=== PATIENT | male | born 1975 | race Caucasian/White ===

== ENCOUNTER 2021-11-30 13:40 | Outpatient (CLI) | payer OTHER, SELFPAY | END 2021-11-30 13:41 | disposition home or self-care (01) | LOC: OP CLINIC 13:43 | PROVIDERS: PCP Family Medicine; Visit Provider Surgery | DX: Z12.11 Encounter for screening for malignant neoplasm of colon (principal) | CPT/HCPCS: 45378; J1200; J2250; J3010 ==

== ENCOUNTER 2022-05-12 18:04 | Emergency (ER) | payer OTHER, SELFPAY ==
[2022-05-12 18:24] VITALS: BP 168/105; PULSE 91; RESP 20; TEMP 36.6; O2SAT 98; BMI 24.4
--- NOTE | 2022-05-12 18:44 | CRLHL7_ITS ---
For Patients: As a result of the Cures Act, medical imaging exams and procedure reports are released immediately into your electronic medical record. You may view this report before your referring provider. If you have questions, please contact your health care provider. Indication: Injury Technique: Three views right hand Comparison: No comparison Findings: Mildly comminuted fracture distal 5th metacarpal with volar angulation and soft tissue swelling present. Dictated by Fiorella Dela Cruz MD @ 05/12/2022 7:37:35 PM (Electronically Signed)
[2022-05-12 18:45] VITALS: BP 142/98; PULSE 91; RESP 16; O2SAT 97
--- NOTE | 2022-05-12 18:58 | ED_ITS ---
HPI - Extremity Injury (Upper) General Date Seen: 05/12/22 Chief Complaint: Extremity Pain/Injury, Upper Stated Complaint: right hand injury Time Seen by Provider: 05/12/22 18:06 Source: patient Mode of arrival: ambulatory Limitations: no limitations Related Data Home Medications Medication Instructions Recorded Confirmed No Known Home Medications 05/12/22 05/12/22 Allergies Allergy/AdvReac Type Severity Reaction Status Date / Time No Known Allergies Allergy Unverified 11/14/21 11:47 [facility] Medical History (Updated 05/12/22 @ 19:15 by Jose Alfredo May MD) History of herpes zoster Surgical History (Updated 11/14/21 @ 11:47 by Kelvin Irizarry) History of knee surgery Social History (Updated 11/14/21 @ 13:49 by Kelvin Irizarry) Narrative: non-smoker Smoking Status: Never smoker Do you use any of these nicotine containing products: None How often do you have a drink containing alcohol: 2-3 times a week How many standard drinks containing alcohol do you have on a typical day: 3 or 4 How often do you have six or more drinks on one occasion: Never AUDIT-C Alcohol total score: 4 Non-prescribed substance use: denies use Exam Narrative: Exam Narrative: Swelling is noted of the both volar dorsum of his hand, 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 Full extension of his fingers is also noted, it is swollen however and some bruising, I think an x-ray would be important, cap refill is normal sensations normal also. No evidence of laceration or open component Const: Vital Signs, click to edit/add: Vital Signs - 24 hr 05/12/22 18:24 05/12/22 18:45 Temperature 97.8 F Pulse Rate [Pulse Oximeter] 91 91 Respiratory Rate 20 16 Blood Pressure [Le ft Upper Arm] 168/105 H 142/98 H Pulse Oximetry 98 97 Oxygen Delivery Me thod Room Air Room Air Documenting provider has reviewed patient's vital signs: yes Course Course Hospital Course: X-ray revealed the boxer's fracture of the 5th metacarpal, approximately less than 20? of angulation is seen of the head, this generally means of functional result, I will contact Orthopedics to get them to weigh in on this. Vital Signs Vital signs: Initial Vital Signs Temperature 97.8 F 05/12/22 18:24 Temperature Source Temporal Artery Scan 05/12/22 18:24 Pulse Rate 91 05/12/22 18:24 Respiratory Rate 20 05/12/22 18:24 Blood Pressure 168/105 H 05/12/22 18:24 Blood Pressure Mean 126 05/12/22 18:24 Blood Pressure Position Sitting 05/12/22 18:24 Pulse Oximetry 98 05/12/22 18:24 Oxygen Delivery Method 05/12/22 18:24 Vital Signs Temperature 97.8 F 05/12/22 18:24 Pulse Rate 91 05/12/22 18:24 Respiratory Rate 20 05/12/22 18:24 Blood Pressure 168/105 H 05/12/22 18:24 Pulse Oximetry 98 05/12/22 18:24 Oxygen Delivery Method 05/12/22 18:24 Temperature 97.8 F 05/12/22 18:24 Pulse Rate 91 05/12/22 18:45 Respiratory Rate 16 05/12/22 18:45 Blood Pressure 142/98 H 05/12/22 18:45 Pulse Oximetry 97 05/12/22 18:45 Oxygen Delivery Method 05/12/22 18:45 MDM - Extremity Injury (Upper) MDM Narrative Medical decision making narrative: I spoke in showed the x-rays to our orthopedist, he agreed that the angulation was minimal, he would best be served just by an ulnar gutter splint in follow-up. I explained this to the patient, talked about the treatment, and follow-up, I built the ulnar gutter splint, and put him in this with the metacarpals flex to 90?, and the PIP and D IP joint minimally flex. Post splint placement he had normal cap refill, normal sensation. Medical Records Attestation: I reviewed the patient's medical records. Imaging Data Hand x-ray: Attestation: I have reviewed the pertinent imaging results. My impression: Closed metacarpal head fracture, with less than 20? of volar angulation of the distal piece. Radiologist's impression: Patient: [facility] Facility:?[facility] Patient ID:?[id number] Site Patient ID:?[id number]. Site :?[id number] Study:?XRay Extremity Right HAND-05/12/2022 7:00:04 PM Ordering Physician:Sofy Veliz Final Report: Indication: Injury Technique: Three views right hand Comparison: No comparison Findings: Mildly comminuted fracture distal 5th metacarpal with volar angulation and soft tissue swelling present. Dictated by Fiorella Dela Cruz MD @ 05/12/2022 7:37:35 PM (Electronic Signature) Discharge Plan Discharge Clinical Impression: Closed boxer's fracture Patient Disposition: Home, Self-Care Condition: Stable Additional Instructions: Follow-up with orthopedic in 5 days, leave splint on always may take off to clean herself, then put it back on, Tylenol ibuprofen for the discomfort, no significant use of the right hand, Prescriptions: No Action No Known Home Medications Follow Up/Referrals: Gerson Gonzalez MD [Staff Physician] - Viktor Bennett MD [Primary Care Provider] - Stand Alone Forms: [employer] Info Instructions
== END 2022-05-12 20:02 | disposition home or self-care (01) ==
PROVIDERS: Emergency Provider Family Medicine; PCP Family Medicine
DX: S62.396A Other fracture of fifth metacarpal bone, right hand, initial encounter for closed fracture (principal)
CPT/HCPCS: 29125; 73130; 99283

== ENCOUNTER 2024-11-02 08:28 | Outpatient (CLI) | payer OTHER, SELFPAY | END 2024-11-02 08:29 | disposition home or self-care (01) | LOC: NFLDREF 11-04 00:42 | PROVIDERS: PCP Family Medicine; Referring Provider Family Medicine; Visit Provider Family Medicine | DX: E78.00 Pure hypercholesterolemia, unspecified (principal); R53.83 Other fatigue; Z12.5 Encounter for screening for malignant neoplasm of prostate | CPT/HCPCS: 80053; 80061; 84270; 84402; 84403; G0103 ==

== ENCOUNTER 2025-02-16 08:15 | Outpatient (CLI) | payer OTHER, SELFPAY | END 2025-02-16 08:16 | disposition home or self-care (01) | LOC: NFLDREF 03-08 13:55 | PROVIDERS: PCP Family Medicine; Referring Provider Family Medicine; Visit Provider Family Medicine | DX: R97.20 Elevated prostate specific antigen [PSA] (principal) | CPT/HCPCS: G0103 ==